=== PATIENT | female | born 1985 | race Caucasian/White ===

== ENCOUNTER → 2019-11-27 10:04 | Outpatient (CLI) | payer OTHER, SELFPAY ==
--- NOTE | 2019-11-27 10:11 | XR_ITS ---
PROCEDURE: XR FOOT RT MIN 3V CLINICAL INDICATION: RT FOOT PAIN COMPARISON: No exams were available for comparison FINDINGS: No fracture or dislocation. No lytic or blastic change. There is normal mineralization. The joint spaces are well-preserved. No significant degenerative/arthritic changes. No erosive changes evident. Other findings:None. IMPRESSION: No acute findings. Dictated by: Abdulkadir Snider MD 11/27/2019 18:11 Electronically signed by Abdulkadir Snider MD in [place] 11/27/2019 18:11
--- NOTE | 2019-11-27 10:11 | XR_ITS ---
PROCEDURE: XR ANKLE RT MIN 3V CLINICAL INDICATION: RT FOOT PAIN COMPARISON: No exams were available for comparison FINDINGS: No fracture or dislocation. No lytic or blastic change. The joint space is well preserved. The ankle mortise is preserved. The talar dome has an unremarkable appearance. IMPRESSION: Negative right ankle Dictated by: Abdulkadir Snider MD 11/27/2019 18:12 Electronically signed by Abdulkadir Snider MD in [place] 11/27/2019 18:12
== END ==
PROVIDERS: PCP Nurse Practitioner; Visit Provider Nurse Practitioner
DX: M79.671 Pain in right foot (principal); M25.571 Pain in right ankle and joints of right foot
CPT/HCPCS: 73610; 73630

== ENCOUNTER → 2021-10-13 13:38 | Outpatient (CLI) | payer BC, SELFPAY ==
--- NOTE | 2021-10-13 13:38 | MR_ITS ---
FINAL REPORT CLINICAL HISTORY: back pain, left hip/leg pain x3 weeks. FINDINGS: Multiplanar MR imaging of the lumbar spine was performed without contrast. On the sagittal T2-weighted images, disc degeneration is seen at L4-5 and L5-S1. Endplate changes L5-S1. The vertebral alignment is normal. There is no evidence of fracture. No bony mass is identified. The conus has an unremarkable appearance. No significant canal stenosis is identified. L1-2: There is no significant canal stenosis or neural foraminal narrowing. L2-3: There is no significant canal stenosis or neural foraminal narrowing. L3-4: There is no significant canal stenosis or neural foraminal narrowing. L4-5: An annular bulge is present. A central disc protrusion indents the thecal sac and contacts the right L5 nerve root. There is no significant canal stenosis or neural foraminal narrowing. L5-S1: There is a left paracentral disc protrusion with left S1 nerve root impingement. There is mild bilateral neural foraminal narrowing. IMPRESSION: Central disc protrusion at L4-L5 contacts the right L5 nerve root. Left paracentral disc protrusion at L5-S1 resulting in left S1 nerve root impingement. Mild bilateral neural foraminal narrowing at L5-S1. Reviewed, Interpreted and Dictated by Azam Zepeda III, MD Transcribed by Deny Anderson Authenticated by Azam Zepeda III, MD on 10/13/2021 02:51:[address] [facility]
== END ==
LOC: RAD 13:38
PROVIDERS: PCP Physician Assistant; Visit Provider Family Medicine
DX: M54.50 Low back pain, unspecified (principal)
CPT/HCPCS: 72148; 76376

== ENCOUNTER → 2021-12-02 08:35 | Outpatient (POV) | payer BC, SELFPAY ==
[2021-12-02 08:41] VITALS: BP 140/99; PULSE 87; RESP 20; TEMP 36.8; O2SAT 100; BMI 26.4
--- NOTE | 2021-12-02 09:26 | HMH.PMCON ---
Assessment and Plan (1) Lumbar disc herniation Status: Acute Category: Medical Code(s): M51.26 - Other intervertebral disc displacement, lumbar region (2) Sacroiliitis Status: Acute Category: Medical Code(s): M46.1 - Sacroiliitis, not elsewhere classified - Assessment and plan all Dx Assessment and Plan for all problems:: Ordering Physician: Quinn Cabrera MD Date of Service: 10/13/21 Procedure(s): MR lumbar spine wo con Accession Number(s): [id number] cc: Azam Zepeda MD; Michell Iglesias~ FINAL REPORT CLINICAL HISTORY: back pain, left hip/leg pain x3 weeks. FINDINGS: Multiplanar MR imaging of the lumbar spine was performed without contrast. On the sagittal T2-weighted images, disc degeneration is seen at L4-5 and L5-S1. Endplate changes L5-S1. The vertebral alignment is normal. There is no evidence of fracture. No bony mass is identified. The conus has an unremarkable appearance. No significant canal stenosis is identified. L1-2: There is no significant canal stenosis or neural foraminal narrowing. L2-3: There is no significant canal stenosis or neural foraminal narrowing. L3-4: There is no significant canal stenosis or neural foraminal narrowing. L4-5: An annular bulge is present. A central disc protrusion indents the thecal sac and contacts the right L5 nerve root. There is no significant canal stenosis or neural foraminal narrowing. L5-S1: There is a left paracentral disc protrusion with left S1 nerve root impingement. There is mild bilateral neural foraminal narrowing. IMPRESSION: Central disc protrusion at L4-L5 contacts the right L5 nerve root. Left paracentral disc protrusion at L5-S1 resulting in left S1 nerve root impingement. Mild bilateral neural foraminal narrowing at L5-S1. Reviewed, Interpreted and Dictated by Azam Zepeda III, MD Transcribed by Deny Anderson Authenticated by Azam Zepeda III, MD on 10/13/2021 02:51:[address] [facility] Patient is a pleasant 36-year-old female who is here today as a new patient. Patient has been having low back pain that radiates to her left hip, left leg and does not cross her left knee. This is worse with any prolonged activity such as sitting, standing, walking. Her left hip/SI is positive for LUISITO, Karla's, compression, and distraction. She has tried oral medication and chiropractic adjustments with no relief of symptoms. She does at home exercises which is also not helping. We will schedule her for a left SI injection. Risks and benefits of the procedure have been explained to the patient. Patient would like to proceed with the procedure. We will also start the patient on compounding cream that she can use for her left hip pain in the meantime. Patient has been instructed to contact the clinic with any concerns before the next appointment. Dr. Hodges has reviewed this note and agrees with this plan of care. This note was dictated using voice recognition software and make contain errors or omissions. HPI - Data of Consult Patient: new to practice Consult date: 12/02/21 Requesting Physician: MARISOL Rangel - Consult Narrative Reason for consult: Back pain History of present illness: Ms. Strong is a 36 year old female who presents today as a new patient. Patient is referred by Dr. Cabrera. Thank you for the referral. Patient presents today with worsening low back pain that radiates to her left hip, left leg. Patient states that she had a cheerleading accident in 1996 where she herniated her disc. She did not get any surgery back then, but did physical therapy with no relief. She has not had any issues on her back until about a few months ago. She started to feel a radiating pain and numbness on her left lateral thigh does not cross the knee. It is worse with prolonged activity such as sitting, standing, and walking. This is also aggravated with lumbar flexion and better with extension. Patient severino
== END ==
LOC: SC.PAIN 08:35
PROVIDERS: Visit Provider Student in an Organized Health Care Education/Training Program
DX: M51.26 Other intervertebral disc displacement, lumbar region (principal); M46.1 Sacroiliitis, not elsewhere classified
CPT/HCPCS: 99202; G0463

== ENCOUNTER 2021-12-10 11:08 | Day surgery (SDC) | payer BC, SELFPAY ==
[2021-12-10 11:20] VITALS: BP 135/91; PULSE 92; RESP 20; TEMP 36.9; O2SAT 100; BMI 26.2
[2021-12-10 11:30] VITALS: BP 138/94; BP 140/95; PULSE 86; PULSE 96; RESP 18; RESP 20; O2SAT 100
--- NOTE | 2021-12-10 11:44 | HMH.PMPROC ---
- Procedure Date: 12/10/21 Time: 11:44 Anesthesiologist:: Robin Hodges MD Complications:: None Pre-procedure Diagnosis:: Sacroiliitis Post-procedure Diagnosis:: Same Indications for Procedure:: This patient is a 36-year-old white female who we are treating for left-sided hip pain. She is tender over the left SI joint. She has a positive Kya's test on the left side. She is positive Nanci test on left side. She is positive SI joint compression test on left side. We will plan on left SI joint injection under fluoroscopy today to help with her pain symptoms. Procedure Details:: Left SI joint injection under fluoroscopy Informed consent was obtained and the risks and benefits of the procedure was explained to the patient. Patient was taken to the procedure room. Patient was placed prone on the procedure table. The left hip was prepped using ChloraPrep. The skin and subcutaneous tissues were anesthetized using lidocaine. I placed a 22-gauge spinal needle into the inferior aspect of the left SI joint. Needle placement was confirmed with dye. After this we injected 5 mL bupivacaine 0.25% and Depo-Medrol 40 mg into the left SI joint. The patient tolerated the procedure well with no complication. Plan and Disposition:: We will follow-up with her in 2 weeks. Will reevaluate symptoms at that time. She also does have disc protrusion at L4-L5. If she does not get any relief from this injection we will plan on lumbar pleural steroid injection under fluoroscopy.
[2021-12-10 11:45] VITALS: BP 123/89; PULSE 80; RESP 20; O2SAT 99
== END 2021-12-10 11:45 | disposition home or self-care (01) ==
LOC: SC.PAINP 11:09
PROVIDERS: PCP Physician Assistant; Visit Provider Anesthesiology
DX: M46.1 Sacroiliitis, not elsewhere classified (principal); M51.26 Other intervertebral disc displacement, lumbar region; F41.9 Anxiety disorder, unspecified; Z82.49 Family history of ischemic heart disease and other diseases of the circulatory system; Z80.9 Family history of malignant neoplasm, unspecified; M19.90 Unspecified osteoarthritis, unspecified site
CPT/HCPCS: 27096; G0260; J1040; Q9966

== ENCOUNTER → 2022-01-06 13:55 | Outpatient (POV) | payer BC, SELFPAY ==
[2022-01-06 14:07] VITALS: BP 147/86; PULSE 88; RESP 18; TEMP 36.8; O2SAT 98; BMI 25.6
--- NOTE | 2022-01-06 15:14 | HMH.PAINSOAP ---
[facility] Pain Management SOAP Note Subjective:: Patient is a pleasant 28-year-old female presents today for follow-up after a left SI injection under fluoroscopy. After the procedure, patient had minimal relief. She states that she continues to have pain around her low back. She cannot tolerate any prolonged activity such as standing and walking. 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 She does see a chiropractor from time to time to help with some adjustments. Rates pain today 6 out of 10. Denies any recent falls or traumas. [facility] #[id number] with an active morphine equivalent of 0. Review of Systems: General: No recent weight changes, no fever, no sleep disturbances Respiratory: No cough, no shortness of air, no recurring pulmonary infections Cardiovascular/peripheral vascular: No chest pain, no palpitations, no edema, no shortness of breath Gastrointestinal: No new onset incontinence, normal bowel movements reported Genitourinary: No new onset incontinence Musculoskeletal: Low back pain Psychiatric: [Normal mood/affect] Neurological: [Denies weakness in extremities], [denies balance issues] Objective:: Physical Exam: General: Alert and oriented x3, no acute distress, pleasant and cooperative, [on room air] Lungs: Respirations even and unlabored, symmetrical chest expansion Eyes: PERRL Musculoskeletal: Flexion and extension of lumbar [spine] somewhat guarded secondary to pain, [antalgic gait noted] Neurological: Speech clear, no gross sensory deficit Assessment:: Degenerative disc disease of lumbar spine with lumbar radiculopathy symptoms Plan:: FINAL REPORT CLINICAL HISTORY: back pain, left hip/leg pain x3 weeks. FINDINGS: Multiplanar MR imaging of the lumbar spine was performed without contrast. On the sagittal T2-weighted images, disc degeneration is seen at L4-5 and L5-S1. Endplate changes L5-S1. The vertebral alignment is normal. There is no evidence of fracture. No bony mass is identified. The conus has an unremarkable appearance. No significant canal stenosis is identified. L1-2: There is no significant canal stenosis or neural foraminal narrowing. L2-3: There is no significant canal stenosis or neural foraminal narrowing. L3-4: There is no significant canal stenosis or neural foraminal narrowing. L4-5: An annular bulge is present. A central disc protrusion indents the thecal sac and contacts the right L5 nerve root. There is no significant canal stenosis or neural foraminal narrowing. L5-S1: There is a left paracentral disc protrusion with left S1 nerve root impingement. There is mild bilateral neural foraminal narrowing. IMPRESSION: Central disc protrusion at L4-L5 contacts the right L5 nerve root. Left paracentral disc protrusion at L5-S1 resulting in left S1 nerve root impingement. Mild bilateral neural foraminal narrowing at L5-S1. Reviewed, Interpreted and Dictated by Azam Zepeda III, MD Transcribed by Deny Anderson Authenticated by Azam Zepeda III, MD on 10/13/2021 02:51:58 PM [facility] Patient had minimal relief after her left SI injection. Per her MRI, she does have this protrusion at L4-L5 and could possibly get relief from an epidural steroid injection. At this time, patient wants to hold off on any further injective therapy. She says that she will follow up with her chiropractor to see if there is any adjustments that they can do. In the meantime, I will start the patient on prednisone 20 mg twice a day for 5 days and tizanidine 2 mg twice a day. Follow-up as needed Patient has been instructed to contact the clinic with any concerns before the next appointment. Dr. Hodges has reviewed this note and agrees with this plan of care. This note was dictated using voice recognition software and make contain errors or omissions. [facility] History Medical History: Reports:: Anxiety Denies:: Ca
== END ==
LOC: SC.PAIN 13:55
PROVIDERS: Visit Provider Student in an Organized Health Care Education/Training Program
DX: M51.16 Intervertebral disc disorders with radiculopathy, lumbar region (principal)
CPT/HCPCS: 99212; G0463

== ENCOUNTER → 2023-02-16 09:52 | Outpatient (CLI) | payer BC, SELFPAY ==
[2023-02-16 13:06] LABS: Basophils % 0.5 % (0.1-2.0); Eosinophils # 0.3 K/mm3 (0.0-0.4); Hematocrit 43.4 % (37.0-47.0); Hemoglobin 13.8 g/dL (12.2-16.2); Lymphocytes # 1.6 K/mm3 (0.7-4.5); Lymphocytes % 17.8 % (10-50); Mean Corpuscular HGB Conc 31.7 g/dL (31.8-35.4); Mean Corpuscular Hemoglobin 27.8 pg (27.0-31.2); Mean Corpuscular Volume 87.7 fl (81-99); Mean Platelet Volume 9.6 fl (7.4-10.4); Monocytes # 0.7 K/mm3 (0.1-1.0); Monocytes % 7.8 % (1.7-9.3); Neutrophils # 6.6 K/mm3 (1.8-7.8); Platelet Count 352 K/mm3 (142-424); Red Blood Count 4.95 M/mm3 (4.20-5.40); Red Cell Distribution Width 15.8 % (11.5-17.5); White Blood Count 9.2 K/mm3 (4.8-10.8)
[2023-02-16 13:42] LABS: Alanine Aminotransferase 31 U/L (12-78); Albumin Level 3.6 g/dl (3.5-5.0); Albumin/Globulin Ratio 1.1 (1.1-1.8); Alkaline Phosphatase 69 U/L (38-126); Anion Gap 18.8 mEq/L (5-15); Aspartate Amino Transferase 38 U/L (14-36); Bilirubin,Total 0.3 mg/dl (0.2-1.3); Blood Urea Nitrogen 11 mg/dl (7-17); Calcium 8.6 mg/dl (8.4-10.2); Carbon Dioxide 23 mmol/L (22.0-30.0); Chloride 103 mmol/L (98-107); Chol/HDL Ratio 2.7 (1-3.5); Cholesterol 236 mg/dl (140-200); Estimated Glomerular Filt Rate 111 ml/min (>60); GFR (African American) 135 ML/MIN (>60); Globulin 3.2 g/dL (1.3-3.2); Glucose 135 mg/dl (74-100); HDL Cholesterol 88 mg/dl (40-60); Potassium 3.8 mmoL/L (3.5-5.1); Sodium 141 mmol/L (136-145); Total Protein,Serum 6.8 g/dl (6.3-8.2); Triglycerides 140 mg/dl (30-150); VLDL Cholesterol 28 mg/dL (0-40)
[2023-02-16 13:53] LABS: Direct LDL Cholesterol 127.85 mg/dL (100-129)
[2023-02-16 13:59] LABS: 25-OH Vitamin D, Total 24.5 ng/mL (30-100)
[2023-02-16 16:10] LABS: T4 (Thyroxine) 8.4 ug/dl (5.53-11.0)
[2023-02-17 12:03] LABS: Hemoglobin A1C 5.5 % (4.0-6.0)
[2023-02-18 08:25] LABS: FSH 16.6 mIU/mL (.); LH 10.3 mIU/mL (.); Progesterone 0.1 ng/mL (.); Testosterone,Total <3 ng/dL (8-60)
[2023-02-24 01:07] LABS: Estrogen 82 pg/mL (.)
== END ==
LOC: LAB.DROPOF 13:17
PROVIDERS: PCP Physician Assistant; Visit Provider Physician Assistant
DX: L65.9 Nonscarring hair loss, unspecified (principal); R73.09 Other abnormal glucose; E55.9 Vitamin D deficiency, unspecified; E66.3 Overweight; Z68.30 Body mass index [BMI] 30.0-30.9, adult
CPT/HCPCS: 80053; 80061; 82306; 82672; 83001; 83002; 83036; 84144; 84403; 84436; 84443; 85025